=== PATIENT | male | born 1995 | race Caucasian/White ===

== ENCOUNTER 2022-12-11 17:42 | Emergency (ER) | payer MEDICAID ==
[~2022-12-11] VITALS: Ht 167.6 cm; Wt 88.0 kg
[2022-12-11 18:01] VITALS: O2SAT 98
[2022-12-11] MEDS ORDERED: ACETAMINOPHEN 325MG TABLET PO ONE (18:45)
[2022-12-11] MEDS ORDERED: LIDOCAINE HCL/EPINEPHRINE 1%-EPI 1:100,000 20 ML VIAL INFIL ONE (18:45)
[2022-12-11] MEDS ORDERED: TETANUS, DIPHTHERIA, PERTUSSIS VAC/PF 0.5ML (>10YR OLD) IM ONE (18:45)
[2022-12-11] MEDS ORDERED: BACITRACIN ZINC OINT UDPKT TOP ONE (18:45)
[2022-12-11 22:00] VITALS: BP 127/58; PULSE 68; RESP 20; TEMP 98.2
== END 2022-12-11 22:00 | disposition home or self-care (01) ==
LOC: ER 17:42
DX: S81.811A Laceration without foreign body, right lower leg, initial encounter (principal); J45.909 Unspecified asthma, uncomplicated; X58.XXXA Exposure to other specified factors, initial encounter; Y93.89 Activity, other specified; Y92.89 Other specified places as the place of occurrence of the external cause; Y99.8 Other external cause status
CPT/HCPCS: 73590; 90715; 12002; 90471; 99283; J3490; Z7610

== ENCOUNTER 2022-12-14 12:28 | Emergency (ER) | payer MEDICAID ==
[~2022-12-14] VITALS: Ht 167.6 cm; Wt 88.0 kg
[2022-12-14 12:31] VITALS: BP 131/77; PULSE 82; RESP 18; TEMP 98.8; O2SAT 98
[2022-12-14] MEDS ORDERED: BO1 TP (12:42)
== END 2022-12-14 14:35 | disposition home or self-care (01) ==
LOC: ER 12:41
DX: S81.811D Laceration without foreign body, right lower leg, subsequent encounter (principal); J45.909 Unspecified asthma, uncomplicated; X58.XXXD Exposure to other specified factors, subsequent encounter
CPT/HCPCS: 99281; 99282